=== PATIENT | male | born 1975 | race Hispanic/Latino ===

== ENCOUNTER 2022-12-01 18:44 | Emergency (ER) | payer SELFPAY ==
[2022-12-01] MEDS ORDERED: Ibuprofen 800 MG TAB ONE (19:28)
== END 2022-12-01 19:35 | disposition home or self-care (01) ==
LOC: ERS 18:44
DX: S82.61XA Displaced fracture of lateral malleolus of right fibula, initial encounter for closed fracture (principal); S93.401A Sprain of unspecified ligament of right ankle, initial encounter; F17.210 Nicotine dependence, cigarettes, uncomplicated; X50.1XXA Overexertion from prolonged static or awkward postures, initial encounter; Y93.66 Activity, soccer